=== PATIENT | male | born 1975 | race African-American/Black ===

== ENCOUNTER 2017-03-02 00:07 | Emergency (ER) | payer MEDICAID ==
[~2017-03-02] VITALS: Ht 188 cm; Wt 90.7 kg
[2017-03-02] MEDS: Haloperidol 5mg/ml Inj IM ONE (00:21)
[2017-03-02] MEDS: DiphenhydrAMINE 50mg/ml Inj IM ONE (00:22)
[2017-03-02 01:18] LABS: BASOPHILS % (AUTO) 1.5 % (0.0-2.0); EOSINOPHILS % (AUTO) 2.6 % (0.0-3.0); LYMPHOCYTES % (AUTO) 17.2 % (20.0-45.0); MEAN CORPUSCULAR HGB CONC 32.4 G/DL (32.0-36.0); MEAN CORPUSCULAR VOLUME 83 FL (80-99); MEAN PLATELET VOLUME 7.8 FL (6.5-10.1); MONOCYTES % (AUTO) 10.4 % (1.0-10.0); NEUTROPHILS % (AUTO) 68.3 % (45.0-75.0); PLATELET COUNT 257 K/UL (150-450); RED BLOOD COUNT 6.16 M/UL (4.70-6.10); RED CELL DISTRIBUTION WIDTH 11.5 % (11.6-14.8); WHITE BLOOD COUNT 9.1 K/UL (4.8-10.8)
[2017-03-02 01:19] LABS: KETONES,URINE NEGATIVE (NEGATIVE); LEUKOCYTE ESTERASE ,URINE 1+ (NEGATIVE); NITRITE,URINE NEGATIVE (NEGATIVE); PH,URINE 6 (4.5-8.0); PROTEIN,URINE 3+ (NEGATIVE); UROBILINOGEN,URINE NORMAL MG/DL (0.0-1.0)
[2017-03-02 01:40] LABS: ANION GAP 10 mmol/L (5-15); CALCIUM 9.6 MG/DL (8.5-10.1); CARBON DIOXIDE 28 MMOL/L (21-32); CHLORIDE 101 MMOL/L (98-107); CREATININE 1.4 MG/DL (0.55-1.30); GLOMERULAR FILTRATION RATE 56.1 mL/min (>60); POTASSIUM 3.3 MMOL/L (3.5-5.1); SODIUM 139 MMOL/L (136-145)
[2017-03-02 01:45] LABS: ALANINE AMINOTRANSFERASE 26 U/L (12-78); ALBUMIN/GLOBULIN RATIO 0.9 (1.0-2.7); ALCOHOL < 3 mg/dL; ASPARTATE AMINO TRANSFERASE 30 U/L (15-37); TOTAL PROTEIN 8.4 G/DL (6.4-8.2)
[2017-03-02 01:46] LABS: ACETAMINOPHEN < 2 MCG/ML (10-30)
[2017-03-02 01:56] LABS: APPEARANCE,URINE CLEAR
[2017-03-02 01:57] LABS: BACTERIA,URINE FEW /HPF; RBC,URINE 0-2 /HPF (0 - 0); SQUAMOUS EPITHELIAL CELL,UR FEW /LPF (NONE/OCC); WBC,URINE 0-2 /HPF (0 - 0)
--- NOTE | 2017-03-02 03:54 | Emergency Room Report ---
History of Present Illness General Chief Complaint: Behavioral Complaint Source: Patient, EMS Present Illness HPI This is a 42-year-old male brought in by EMS and police for altered mental status. Initially unable to get anything from him until his intoxication wore off. Patient was running naked on the street. He denies any complaint. He was combative and yelling when he is here. He had to be sedated. Now patient denies suicidal thoughts or homicidal thought. No other complaint. Allergies: Coded Allergies: UNABLE TO ASSESS (Unverified , 03/02/17) Patient History Past Medical History: none Past Surgical History: none Family History: none Social History: drug use Immunizations: other Reviewed Nursing Documentation: PMH: Agreed, PSxH: Agreed Nursing Documentation-PMH Past Medical History: No Stated History Review of Systems ENT: Denies: sore throat Cardiovascular: Denies: chest pain, palpitations Gastrointestinal/Abdominal: Denies: nausea, vomiting, diarrhea Musculoskeletal: Denies: back problems Skin: Denies: rash Neurological: Denies: COSTA, seizures All Other Systems: negative except mentioned in HPI Physical Exam Vital Signs Date Time Temp Pulse Resp B/P (MAP) Pulse Ox O2 Delivery O2 Flow Rate FiO2 03/02/17 00:07 98.8 99 14 147/91 99 Room Air vitals unremarkable Sp02 EP Interpretation: reviewed, normal General Appearance: no apparent distress, non-toxic, other - Agitated Head: normocephalic, atraumatic Eyes: PERRL, EOMI ENT: oropharynx normal Neck: supple/symm/no masses Respiratory: effort normal, no rhonchi, no wheezing Cardiovascular: no murmur, gallop, rub Gastrointestinal: non-tender, no mass, non-distended, no rebound/guarding, normal bowel sounds Musculoskeletal: gait & station normal Neurologic: oriented x3, sensory intact, motor strength/tone normal Skin: no rash, normal palpation Medical Decision Making Diagnostic Impression: Primary Impression: Psychosis Qualified Codes: 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 He is back to baseline now. Initially had to be given Haldol and Benadryl because of his agitation. No criteria at this moment for 5150. We'll discharge home. Lab Results Impression labs normal Last Vital Signs Date Time Temp Pulse Resp B/P (MAP) Pulse Ox O2 Delivery O2 Flow Rate FiO2 03/02/17 00:07 98.8 99 14 147/91 99 Room Air Status: improved Disposition: HOME, SELF-CARE Condition: Stable Referrals: NOT CHOSEN IPA/,REFERRING (PCP) Additional Instructions: Stop using drugs. Followup with rehabilitation. Followup with your Dr. in 7 days. Return if worse. KIKE PETERSON M.D. Mar 02, 2017 03:54
[2017-03-02 04:43] VITALS: BP 116/68
[2017-03-02 05:16] VITALS: BP 116/68
== END 2017-03-02 05:28 | disposition home or self-care (01) ==
LOC: EDBD 00:07 → EMR 00:20
DX: F16.159 Hallucinogen abuse with hallucinogen-induced psychotic disorder, unspecified (principal); R41.82 Altered mental status, unspecified
CPT/HCPCS: 36415; 80053; 80307; 80329; 81003; 85025; 96372; 99283; J1200; J1630